=== PATIENT | male | born 1955 | race Hispanic/Latino ===

== ENCOUNTER 2020-11-07 04:44 | Emergency (ER) | payer BC, OTHER ==
--- OUTSIDE RECORDS SUMMARY | 2020-11-07 04:47 | XMS REPORT | Continuity of Care Document ---
:1955 Author Organization [facility] t Address [address] [place] [address] Care Team Providers Name Role Phone Unavailable Unavailable Unavailable Problems Condition Condition Condition Status Onset Resolution Last Treating Co mments Source Name Details Category Date Date Treatment Clinician Date Generalize Generalize Problem Active [facility] rash d rash [facility] History of History of Problem Active [facility] hepatitis hepatitis Luke s - C virus C virus Memoria infection infection l [facility] Hepatitis Hepatitis Problem [facility] Kidney Kidney Problem Active [facility] stones stones [facility] Depression Depression Problem Active [facility] with with [facility] anxiety anxiety [facility] Hyperglyce Hyperglyce Diagnosis Active [facility] alana alana [facility] 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 [place] kes - [facility] Erectile Erectile Problem Active [facility] dysfunctio dysfunctio [place]es - n n [facility] Hypertrigl Hypertrigl Diagnosis Active [facility] yceridemia yceridemia [place] kes - [facility] Dysphagia, Dysphagia, Problem Active C [facility] unspecifie unspecifie [place] kes - d type d type [facility]ics Pain of Pain of Problem Active [facility] left heel left heel [facility] - [facility] Scrotal Scrotal Diagnosis Active [facility] Erectile Erectile Diagnosis Active [facility] dysfunctio dysfunctio [place] kes - n, n, Memoria unspecifie unspecifie l d erectile d erectile Ou tpati dysfunctio dysfunctio en t n type n type Clinics Allergies, Adverse Reactions, Alerts This patient has no known allergies or adverse reactions. Medications Ordered Filled Start Stop Current Ordering Indication Dosage Frequency Signature Comments Components Source Medication Medication Date Date Medication? Clinician (SIG) Name Name Alive Alive Yes Ada not [facility] Energy 50+ Energy 50+ Millender defined [facility] Olmos Yes Ada [address] Wort Wort Millender [facility] Mobic Mobic Yes Ada [address] [facility] Millender [facility] Glucosamine Glucosamine Yes Ada not [facility] Chond Chond Millender defined [facility] Complex/MSM Complex/MSM M [facility]oria l [facility] Vitamin C Vitamin C Yes Ada not [facility] Millender defined [facility] Procedures This patient has no known procedures. Encounters Start End Encounter Admission Attending Care Care Encounter Source Date/Time Date/Time Type Type Clinicians Facility Department ID 2019-07-13 2019-07-13 [facility] [id number] [facility] 10[facility]00 10:45[facility]00 [facility] 2019-04-06 2019-04-06 [facility] [place] [id number] [facility] 16:00[facility]00 16:00[facility]00 [facility] 2018-11-10 2018-11-10 [facility] [place] [id number] [facility] 08:40:00 08:40:00 [facility] 2017-11-04 2017-11-04 [facility] [place] [id number] [facility] 09:30[facility]00 09:30:00 [facility] Results This patient has no known results.
--- NOTE | 2020-11-07 06:09 | EDPHYS ---
Physician Documentation [facility] Name: Rafael Loyola Age: 64 yrs Sex: Male : 1955 Arrival Date: 11/07/2020 Time: 04:48 Bed 27 Private MD: ED Physician Ruperto Ghotra HPI: 11/07 05:57 This 64 yrs old Male presents to ER via Wheelchair with complaints of Infected pkl toe. 05:57 The patient presents with wound between left 4 th and 5 th toes. Onset: The pkl symptoms/episode began/occurred 1 week(s) ago. Associated signs and symptoms: Pertinent positives: of the left foot, swelling, pain and erythema. Historical: - Allergies: 05:40 No Known Allergies; iw - Home Meds: 05:40 None [Active]; iw - PMHx: 05:40 None; iw - PSHx: 05:40 Hernia repair; iw - Immunization history:: Client reports receiving the 2nd dose of the Covid vaccine. - Social history:: Smoking status: Patient denies any tobacco usage or history of. ROS: 05:57 MS/extremity: Positive for erythema, pain, swelling, of the left foot. pkl 05:57 Eyes: Negative for injury, pain, redness, and discharge, ENT: Negative for injury, pain, and discharge, Neck: Negative for injury, pain, and swelling, Cardiovascular: Negative for chest pain, palpitations, and edema, Respiratory: Negative for shortness of breath, cough, wheezing, and pleuritic chest pain, Abdomen/GI: Negative for abdominal pain, nausea, vomiting, diarrhea, and constipation, Back: Negative for injury and pain, : Negative for injury, bleeding, discharge, and swelling, Neuro: Negative for headache, weakness, numbness, tingling, and seizure. Exam: 05:57 Head/Face: Normocephalic, atraumatic. Eyes: Pupils equal round and reactive to light, pkl extra-ocular motions intact. Lids and lashes normal. Conjunctiva and sclera are non-icteric and not injected. Cornea within normal limits. Periorbital areas with no swelling, redness, or edema. ENT: Nares patent. No nasal discharge, no septal abnormalities noted. Tympanic membranes are normal and external auditory canals are clear. Oropharynx with no redness, swelling, or masses, exudates, or evidence of obstruction, uvula midline. Mucous membranes moist. Neck: Trachea midline, no thyromegaly or masses palpated, and no cervical lymphadenopathy. Supple, full range of motion without nuchal rigidity, or vertebral point tenderness. No Meningismus. Chest/axilla: Normal chest wall appearance and motion. Nontender with no deformity. No lesions are appreciated. Cardiovascular: Regular rate and rhythm with a normal S1 and S2. No gallops, murmurs, or rubs. Normal PMI, no JVD. No pulse deficits. Respiratory: Lungs have equal breath sounds bilaterally, clear to auscultation and percussion. No rales, rhonchi or wheezes noted. No increased work of breathing, no retractions or nasal flaring. Abdomen/GI: Soft, non-tender, with normal bowel sounds. No distension or tympany. No guarding or rebound. No evidence of tenderness throughout. Back: No spinal tenderness. No costovertebral tenderness. Full range of motion. Skin: Warm, dry with normal turgor. Normal color with no rashes, no lesions, and no evidence of cellulitis. Neuro: Awake and alert, GCS 15, oriented to person, place, time, and situation. Cranial nerves II-XII grossly intact. Motor strength 5/5 in all extremities. Sensory grossly intact. Cerebellar exam normal. Normal gait. 05:57 Musculoskeletal/extremity: Extremities: grossly normal except: noted in the left foot: erythema, pain, swelling. Vital Signs: 05:38 BP 106 / 76; Pulse 58; Resp 16; Temp 97.1; Pulse Ox 99% on R/A; Weight 77.11 kg; Height iw 5 ft. 6 in. (167.64 cm); 05:38 Body Mass Index 27.44 (77.11 kg, 167.64 cm) iw MDM: 05:47 Patient medically screened. pkl 06:06 Data reviewed: vital signs, nurses notes. pkl 06:09 ED course: Advised to follow up with PCP in 2 to 3 days. Return if symptoms are worse. pkl Patient understood instructions. 11/07 06:48 Order name: Glucose, Ancillary Testing EDMS 11/07 05:55 Order name: Accucheck Blood Glucose; Complete Time: 06:40 pkl Administered Medications: 06:45 Drug: Ancef (cefazolin) 1 grams Route: IM; Site: left vastus lateralis; iw 07:00 Follow up: Response: No adverse reaction iw Disposition: 11/07/20 06:08 Discharged to Home. Impression: Infected wound between left 4 th and 5 th toes. Cellulitis left foot. - Condition is Stable. - Prescriptions for Augmentin 875- 125 mg Oral Tablet - take 1 tablet by ORAL route every 12 hours for 10 days; 20 tablet. - Medication Reconciliation Form, Thank You Letter, Antibiotic Education, Prescription Opioid Use form. - Follow up: Private Physician; When: 2 - 3 days; Reason: Re-evaluation by your physician. - Problem is new. - Symptoms are unchanged. Signatures: Dispatcher [employer] EDRuperto Hunter MD MD pkl Mirian Luque RN RN iw Corrections: (The following items were deleted from the chart) 06:50 06:08 11/07/2020 06:08 Discharged to Home. Impression: Infected wound between left 4 th iw and 5 th toes. Cellulitis left foot. Condition is Stable. Forms are Medication Reconciliation Form, Thank You Letter, Antibiotic Education, Prescription Opioid Use. Follow up: Private Physician; When: 2 - 3 days; Reason: Re-evaluation by your physician. Problem is new. Symptoms are unchanged. pkl
--- NOTE | 2020-11-07 06:09 | ER ---
Nurse's Notes [facility] Name: Rafael Loyola Age: 64 yrs Sex: Male : 1955 Arrival Date: 11/07/2020 Time: 04:48 Bed 27 Private MD: Diagnosis: Infected wound between left 4 th and 5 th toes. Cellulitis left foot Presentation: 11/07 05:38 Chief complaint: Patient states: has a sore in between his left 4th and 5th toe X 1 iw week, now his left foot is red and swollen. Coronavirus screen: At this time, the client does not indicate any symptoms associated with coronavirus-19. Ebola Screen: Patient negative for fever greater than or equal to 101.5 degrees Fahrenheit, and additional compatible Ebola Virus Disease symptoms Patient denies exposure to infectious person. Patient denies travel to an Ebola-affected area in the 21 days before illness onset. No symptoms or risks identified at this time. Initial Sepsis Screen: Does the patient meet any 2 criteria? No. Patient's initial sepsis screen is negative. Does the patient have a suspected source of infection? No. Patient's initial sepsis screen is negative. Risk Assessment: Do you want to hurt yourself or someone else? Patient reports no desire to harm self or others. Onset of symptoms was November 02, 2020. 05:38 Method Of Arrival: Wheelchair iw 05:38 Acuity: OMID 3 iw Historical: - Allergies: 05:40 No Known Allergies; iw - Home Meds: 05:40 None [Active]; iw - PMHx: 05:40 None; iw - PSHx: 05:40 Hernia repair; iw - Immunization history:: Client reports receiving the 2nd dose of the Covid vaccine. - Social history:: Smoking status: Patient denies any tobacco usage or history of. Vital Signs: 05:38 BP 106 / 76; Pulse 58; Resp 16; Temp 97.1; Pulse Ox 99% on R/A; Weight 77.11 kg; Height iw 5 ft. 6 in. (167.64 cm); 05:38 Body Mass Index 27.44 (77.11 kg, 167.64 cm) iw ED Course: 04:48 Patient arrived in ED. es 05:39 Triage completed. iw 05:40 Arm band placed on. iw 05:47 Ghotra, Pin, MD is Attending Physician. pkl 06:31 Mirian Luque, RN is Primary Nurse. iw Administered Medications: 06:45 Drug: Ancef (cefazolin) 1 grams Route: IM; Site: left vastus lateralis; iw 07:00 Follow up: Response: No adverse reaction iw Outcome: 06:08 Discharge ordered by . pkl 06:50 Patient left the ED. iw Signatures: Ruperto Ghotra MD MD pkl Tara Woodruff Irene, RN RN iw
[2020-11-07 06:55] VITALS: BP 106/76; TEMP 97.1; O2SAT 99
[2020-11-07] MEDS ORDERED: CEFAZOLIN SODIUM 1 GM/VIAL ONE (07:01)
[2020-11-07] MEDS ORDERED: WATER FOR INJ,STERILE 10 ML ONE (07:01)
== END 2020-11-07 06:50 | disposition home or self-care (01) ==
LOC: ER 04:44
DX: L03.116 Cellulitis of left lower limb (principal)
CPT/HCPCS: 82947; 96372; 99282; J0690